=== PATIENT | female | born 1980 | race Caucasian/White ===

== ENCOUNTER 2019-07-31 19:06 | Emergency (ER) | payer OTHER, MEDICAID ==
[~2019-07-31] VITALS: Ht 157.5 cm; Wt 75.0 kg
[~2019-07-31 19:06] MED LIST: NAPR-1154 PO; TIZA4TAB5 PO
[2019-07-31] MEDS ORDERED: HYDROcodone/acetaminophen 10/325mg tab PO STA (19:17)
[2019-07-31] MEDS ORDERED: ketorolac tromethamine 15mg/ml inj. IM ONE (20:00)
[2019-07-31] MEDS ORDERED: cyclobenzaprine 10mg tablet PO ONE (20:00)
[2019-07-31 21:46] VITALS: BP 149/86
== END 2019-07-31 21:30 | disposition home or self-care (01) ==
LOC: ER 19:06
DX: M79.645 Pain in left finger(s) (principal); M79.642 Pain in left hand; M54.5 Low back pain; E78.00 Pure hypercholesterolemia, unspecified; I10 Essential (primary) hypertension; J45.909 Unspecified asthma, uncomplicated; G89.29 Other chronic pain; Z98.51 Tubal ligation status; Z79.899 Other long term (current) drug therapy; V89.2XXA Person injured in unspecified motor-vehicle accident, traffic, initial encounter; Y93.89 Activity, other specified; Y92.89 Other specified places as the place of occurrence of the external cause; Y99.8 Other external cause status
CPT/HCPCS: 29125; 73130; 96372; 99283; J1885

== ENCOUNTER 2019-08-02 13:39 | Emergency (ER) | payer MEDICAID ==
[~2019-08-02] VITALS: Ht 165.1 cm; Wt 70.5 kg
[2019-08-02 13:43] VITALS: BP 161/94
[2019-08-02] MEDS ORDERED: ketorolac tromethamine 15mg/ml inj. IM ONE (14:30)
[2019-08-02] MEDS ORDERED: orphenadrine citrate 60mg/2ml inj. IM ONE (14:30)
[2019-08-02] MEDS ORDERED: METH-360 PO (15:25)
[2019-08-02] MEDS ORDERED: IBUP-1985 PO (15:25)
== END 2019-08-02 15:52 | disposition home or self-care (01) ==
LOC: ER 13:40
DX: S16.1XXA Strain of muscle, fascia and tendon at neck level, initial encounter (principal); M54.5 Low back pain; B34.9 Viral infection, unspecified; E78.00 Pure hypercholesterolemia, unspecified; I10 Essential (primary) hypertension; J45.909 Unspecified asthma, uncomplicated; G89.29 Other chronic pain; Z98.51 Tubal ligation status; Z79.899 Other long term (current) drug therapy; V89.2XXA Person injured in unspecified motor-vehicle accident, traffic, initial encounter; Y93.89 Activity, other specified; Y92.89 Other specified places as the place of occurrence of the external cause; Y99.8 Other external cause status
CPT/HCPCS: 72040; 96372; 99283; J1885; J2360

== ENCOUNTER 2019-08-30 16:05 | Outpatient (CLI) | payer MEDICAID ==
[~2019-08-30 16:05] MED LIST changes: +IBUP-1985 PO; +METH-360 PO
== END 2019-08-30 17:30 | disposition home or self-care (01) ==
LOC: ORTHO 16:05
PROVIDERS: ATTEND Orthopaedic Surgery
DX: S63.642A Sprain of metacarpophalangeal joint of left thumb, initial encounter (principal); V89.2XXA Person injured in unspecified motor-vehicle accident, traffic, initial encounter; Y93.89 Activity, other specified; Y92.488 Other paved roadways as the place of occurrence of the external cause; Y99.8 Other external cause status
CPT/HCPCS: G0463

== ENCOUNTER 2019-11-13 15:39 | Outpatient (CLI) | payer MEDICAID | END 2019-11-13 16:16 | disposition home or self-care (01) | LOC: ORTHO 15:39 | PROVIDERS: ATTEND Orthopaedic Surgery | DX: M25.542 Pain in joints of left hand (principal) | CPT/HCPCS: G0463 ==